=== PATIENT | female | born 1950 | race Caucasian/White ===

== ENCOUNTER 2018-10-12 11:13 | Emergency (ER) | payer MEDICARE ==
[~2018-10-12] VITALS: Ht 157.5 cm; Wt 84.1 kg
[2018-10-12] MEDS ORDERED: SERT-155 (11:27)
[2018-10-12 12:45] LABS: BASO # 0.1 10^3/uL (0.0-0.2); BASO % 0.9 % (0.0-1.0); EOS # 0.2 10^3/uL (0.0-0.50); EOS % 1.8 % (0.0-3.0); HEMATOCRIT 45.8 % (36.0-47.0); HEMOGLOBIN 15.2 g/dl (12.0-15.5); LYMPH # 2.2 10^3/uL (1.5-4.5); MEAN CORPUSCULAR HEMOGLOBIN 29.4 pg (27.0-33.0); MEAN CORPUSCULAR HGB CONC 33.2 g/dl (32.0-36.5); MEAN CORPUSCULAR VOLUME 88.6 fl (80.0-96.0); MONO # 0.6 10^3/uL (0.0-0.8); MONO % 5.1 % (0.0-5.0); NEUTROPHILS # 7.9 10^3/uL (1.8-7.7); NEUTROPHILS % 71.8 % (36.0-66.0); PLATELET COUNT, AUTOMATED 320 10^3/uL (150-450); RED BLOOD COUNT 5.17 10^6/uL (4.00-5.40)
[2018-10-12] MEDS ORDERED: MECLIZINE 25 MG TABLET PO ONE (13:00)
[2018-10-12 13:07] LABS: ALBUMIN 4.1 GM/DL (3.2-5.2); ALT/SGPT 28 U/L (12-78); BILIRUBIN,TOTAL 0.4 MG/DL (0.2-1.0); BLOOD UREA NITROGEN 14 MG/DL (7-18); CARBON DIOXIDE LEVEL 24 MEQ/L (21-32); CHLORIDE LEVEL 104 MEQ/L (98-107); CREATININE FOR GFR 0.66 MG/DL (0.55-1.30); GLOMERULAR FILTRATION RATE > 60.0 (>45); GLUCOSE, FASTING 103 MG/DL (70-100); POTASSIUM SERUM 4.6 MEQ/L (3.5-5.1); SODIUM LEVEL 138 MEQ/L (136-145); TOTAL PROTEIN 7.4 GM/DL (6.4-8.2)
--- NOTE | 2018-10-12 13:33 | REP ---
Clinical: Vertigo . Findings: Age-related atrophy and microvascular ischemic changes are appreciated. The ventricles and sulci are symmetric. Contreras-white differentiation is maintained. There is no evidence for acute intracranial hemorrhage, mass/mass effect, pathology or infarction. No extra-axial fluid collection. Calvarium is intact. Paranasal sinuses and mastoid air cells are clear. Impression: Age related atrophy and microvascular ischemic changes. No acute intracranial hemorrhage, infarction, or mass/mass effect. Electronically Signed by Gt Medina MD 10/12/2018 01:25 P
[2018-10-12] MEDS ORDERED: LORazepam 2 MG/ML VIAL (J2060) IV STA (16:10)
--- NOTE | 2018-10-12 18:19 | REPVR ---
EXAM: MR Angiogram Head Without Contrast, Arteries EXAM DATE/TIME: 10/12/2018 5:54 PM CLINICAL HISTORY: 68 years old, female; Dizziness and giddiness and vertigo; Additional info: Vertigo: Vertebrobasillar insufficiency TECHNIQUE: Imaging protocol: MR angiogram head without contrast. Exam focused on the arteries. COMPARISON: CT Head without contrast 10/12/2018 1:20 PM FINDINGS: Right internal carotid artery: Unremarkable. Intracranial segment is patent with no significant stenosis. No aneurysm. Right anterior cerebral artery: Unremarkable. No occlusion or significant stenosis. No aneurysm. 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 The aneurysm is measured on image 94 of series 201. The dome height is approximately 6.7 mm. The dome width is approximately 6.2 mm. Right posterior cerebral artery: Unremarkable. No occlusion or significant stenosis. No aneurysm. Right vertebral artery: Unremarkable. No occlusion or significant stenosis. No aneurysm. Left internal carotid artery: Unremarkable. Intracranial segment is patent with no significant stenosis. No aneurysm. Left anterior cerebral artery: Unremarkable. No occlusion or significant stenosis. No aneurysm. Left middle cerebral artery: Patent. There is a 1-2 mm outpouching from the mid left M1, this may represent a tiny aneurysm versus infundibulum. Left posterior cerebral artery: Unremarkable. No occlusion or significant stenosis. No aneurysm. Left vertebral artery: Unremarkable. No occlusion or significant stenosis. No aneurysm. Basilar artery: Unremarkable. No occlusion or significant stenosis. No aneurysm. IMPRESSION: 1. 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 Neurosurgical consultation is recommended. 2. No major proximal vessel branch occlusion seen. The vertebrobasilar system is patent. Electronically signed by: Portia Leos On 10/12/2018 18:19:38 PM
--- NOTE | 2018-10-12 18:25 | REPVR ---
EXAM: MR Head Without Contrast EXAM DATE/TIME: 10/12/2018 5:54 PM CLINICAL HISTORY: 68 years old, female; Dizziness; Additional info: Vertigo TECHNIQUE: Imaging protocol: MR of the head without contrast. COMPARISON: MRA BRAIN W/O CONTRAST 10/12/2018 5:[address] Head without contrast 10/12/2018 1:20:31 PM FINDINGS: Brain: No acute infarct identified on the diffusion weighted imaging. No parenchymal hemorrhage. No significant white matter disease for the patient's age. The T2-weighted imaging demonstrates a few small foci of increased signal intensity in the deep and subcortical white matter in keeping with trace chronic small vessel ischemic change. Ventricles: No ventriculomegaly. Bones/joints: Unremarkable. Soft tissues: Normal. Sinuses: Normal as visualized. No acute sinusitis. Mastoid air cells: Normal as visualized. No mastoid effusion. Orbits: Unremarkable. Sella: There is a partially empty sella turcica, usually an incidental finding. Middle cerebral arteries: Abnormal flow void at the right MCA trifurcation consistent with an aneurysm better visualized on an MRA head obtained concurrently. IMPRESSION: No evidence of acute infarct. Electronically signed by: Portia Leos On 10/12/2018 18:24:50 PM
[2018-10-12] MEDS ORDERED: MECL-68 PO (19:33)
[2018-10-12 19:48] VITALS: BP 177/86
--- NOTE | 2018-10-13 10:30 | ECGEPIP ---
[facility] - ED Test Date: 2018-10-12 Pat Name: RICH VASQUEZ Department: Room: - Gender: Female Shoder Filler: elie : 1950 Requested By: Gaurav Multani Order Number: [id number] Reading MD: Gaurav Medina Measurements Intervals Danielson Rate: 78 P: 66 AK: 148 QRS: QRSD: 88 T: 72 QT: 382 QTc: 437 Interpretive Statements SINUS RHYTHM PROBABLE INFERIOR MYOCARDIAL INFARCTION, PROBABLY OLD POOR R WAVE PROGRESSION NO PRIORS FOR COMPARISON Electronically Signed on 10-13-2018 10:29:56 EDT by Gaurav Medina
--- NOTE | 2018-10-17 11:43 | ED PDOC ---
Post-Departure Follow-Up dr aguilar and dr peacock faxed mra of brain for fu Tr Law MD Oct 17, 2018 11:43
== END 2018-10-12 19:51 | disposition home or self-care (01) ==
LOC: M ED 11:13
DX: I67.1 Cerebral aneurysm, nonruptured (principal); R42 Dizziness and giddiness; F32.9 Major depressive disorder, single episode, unspecified; Z79.899 Other long term (current) drug therapy
CPT/HCPCS: 70450; 70544; 70551; 80053; 85025; 93005; 96374; 99284; J2060

== ENCOUNTER → 2018-11-07 | Outpatient (CLI) | payer MEDICARE ==
[~2018-11-07] MED LIST: MECL-68 PO; SERT-155
--- NOTE | 2018-11-07 15:26 | REP ---
BILATERAL SCREENING DIGITAL MAMMOGRAM WITH 3D TOMOSYNTHESIS: There are no palpable abnormalities or other breast complaints. The the patient states she has not had a clinical breast examination over a year. The the patient states she performs self-breast examinations 12 times per year. The Tyrer-Cuzick Score is: 4.8% . Comparison is 08/18/2007, a 2008, 07/22/2011, 11/30/2012 and 09/27/2017. There are scattered areas of fibroglandular density. There is no dominant mass, micro calcific cluster or architectural distortion that would indicate malignancy. There are no additional findings on 3D tomosynthesiss. There is no change from the prior study. Impression: BIRADS/ACR category 1 mammogram. Negative. Recommendation: Routine annual screening mammography. This mammogram was interpreted with the aid of a FDA approved computer-aided detection system. A. Negative mammogram reports should not delay biopsy if a dominant or clinically suspicious mass is present. B. Not all breast cancers are identified by mammography or tomosynthesis. C. Adenosis and dense breasts may obscure an underlying neoplasm. Patient letter M1. Electronically Signed by Terell Ansari MD 11/07/2018 03:17 P
--- NOTE | 2018-11-10 08:45 | DEXA ---
AP SPINE L1 - L4 1.191 0.0 1.6 LT FEMUR TOTAL 0.826 -1.4 -0.2 LT NECK 0.754 -2.0 -0.5 RT FEMUR TOTAL 0.877 -1.0 0.2 RT NECK 0.769 -1.9 -0.4 TOTAL BODY TOTAL OTHER COMMENTS: Normal bone densitometry of the spine. There is low bone density of the hips. The density of the spine has decreased 3.7% since 08/10/2011. The density of the left hip has increased 2.6% since 08/10/2011. The density of the right hip has increased 2.0% since 08/10/2011. FOLLOW-UP: Recommendation for the next bone density exam: 2 years. RENETTA
== END ==
LOC: M WHC 14:03
PROVIDERS: ATTEND Family Medicine
DX: Z12.31 Encounter for screening mammogram for malignant neoplasm of breast (principal); M81.0 Age-related osteoporosis without current pathological fracture

== ENCOUNTER → 2019-04-18 | Outpatient (CLI) | payer MEDICARE ==
[~2019-04-18] MED LIST changes: -SERT-155; +SERT50TA29
--- NOTE | 2019-04-18 18:00 | REP ---
MR angiography the brain without contrast: History: Known cerebral aneurysm. None ruptured. Follow-up. Comparison MR angiography October 12, 2018. Technique: 3-D [id number] MR angiography of the brain is acquired in the usual fashion and maximal intensity projection images were generated in rotational format about the vertical and horizontal axes. In addition, source axial T1-weighted images are viewed in cine mode. MR angiographic findings: The distal vertebral arteries are patent and co-dominant. Basilar artery is a little tortuous but widely patent. The posterior cerebral and superior cerebellar vessels are normal and symmetric. The distal internal carotid arteries are unremarkable. There is a tiny 2 mm outpouching from the M1 segment of the left middle cerebral artery unchanged from the comparison exam. A tiny M1 segment aneurysm is suspected. In addition, at the bifurcation of the right middle cerebral artery there is a 6.2 mm gomez aneurysm which is unchanged as well from the October 12, 2018 prior study. No other aneurysm is seen. Exam is otherwise unremarkable. Impression: 6 mm stable gomez aneurysm bifurcation right middle cerebral artery. 2 mm aneurysm suspected projecting superiorly from the M1 segment of the left MCA. No change from comparison study. Electronically Signed by Ryan Mancia MD 04/18/2019 06:24 P
== END ==
LOC: M RAD 13:12
PROVIDERS: ATTEND Neurological Surgery
DX: I87.1 Compression of vein (principal)

== ENCOUNTER → 2019-11-09 | Outpatient (CLI) | payer MEDICARE ==
[~2019-11-09] MED LIST changes: -MECL-68 PO; +MECL1TAB31 PO
== END ==
LOC: M RAD 15:50
PROVIDERS: ATTEND Physician Assistant Medical
DX: I67.1 Cerebral aneurysm, nonruptured (principal)

== ENCOUNTER → 2020-02-28 | Outpatient (CLI) | payer MEDICARE ==
--- NOTE | 2020-02-28 09:48 | REPMRS ---
Patient History The patient states she has not had a clinical breast exam in over a year. No known family history of cancer. Took estrogen for 6 months. 3D TOMOSYNTHESIS WAS PERFORMED. [facility] lifetime risk for breast cancer is 4.6%. Volpara breast density b. Digital Woman Screen Mammo: February 28, 2020 - Exam #: [id number] Bilateral CC and MLO view(s) were taken. Technologist: Portia Martinez, Technologist Prior study comparison: November 07, 2018, bilateral digital woman screen mammo performed at [facility]. September 27, 2017, bilateral digital woman screen mammo performed at [facility]. FINDINGS: There are scattered fibroglandular densities. There has been no change in the appearance of the mammogram from the prior studies. There is a mild amount of residual fibroglandular tissue which is fairly symmetric. There is no interval development of dominant mass, architectural distortion, or clustered microcalcification suggestive of malignancy. Assessment: BI-RADS/ACR category 1 mammogram. Negative Mammogram. Recommendation Routine screening mammogram in 1 year (for women over age 40). This mammogram was interpreted with the aid of an FDA-approved computer-aided dectection system. Electronically Signed By: Terell Contreras MD 02/28/20 [id number]
== END ==
LOC: M WHC 08:52
PROVIDERS: ATTEND Family Medicine
DX: Z12.31 Encounter for screening mammogram for malignant neoplasm of breast (principal)

== ENCOUNTER → 2020-04-24 | Outpatient (CLI) | payer MEDICARE ==
--- NOTE | 2020-04-24 15:56 | REPVR ---
PROCEDURE INFORMATION: Exam: MR Angiogram Head Without Contrast, Arteries Exam date and time: 04/24/2020 1:57 PM Age: 69 years old Clinical indication: Condition or disease; Aneurysm, cerebral; Patient HX: Aneursym TECHNIQUE: Imaging protocol: MR angiogram head without contrast. Exam focused on the arteries. 3D rendering (Not supervised by radiologist): MIP and/or 3D reconstructed images were created by the technologist. COMPARISON: MRA BRAIN W/O CONTRAST 11/09/2019 4:27 PM FINDINGS: ANTERIOR CIRCULATION: Right internal carotid artery: Intracranial segment is patent with no significant stenosis. No aneurysm. Right middle cerebral artery: There is a stable 7 mm right MCA bifurcation aneurysm. Right anterior cerebral artery: No occlusion or significant stenosis. No aneurysm. Left internal carotid artery: Intracranial segment is patent with no significant stenosis. No aneurysm. Left middle cerebral artery: There is a stable 2 mm left M1 segment aneurysm. Left anterior cerebral artery: No occlusion or significant stenosis. No aneurysm. POSTERIOR CIRCULATION: Right vertebral artery: No occlusion or significant stenosis. No aneurysm. Left vertebral artery: No occlusion or significant stenosis. No aneurysm. Basilar artery: No occlusion or significant stenosis. No aneurysm. Right posterior cerebral artery: No occlusion or significant stenosis. No aneurysm. Left posterior cerebral artery: No occlusion or significant stenosis. No aneurysm. IMPRESSION: 1. There is a stable 7 mm right MCA bifurcation aneurysm. This has been reported previously. 2. There is a stable 2 mm left M1 segment aneurysm. This has been reported previously. Electronically signed by: Zeb Sevilla On 04/24/2020 15:57:06 PM
== END ==
LOC: M RAD 13:19
PROVIDERS: ATTEND Physician Assistant Medical
DX: I67.1 Cerebral aneurysm, nonruptured (principal)

== ENCOUNTER → 2020-07-23 | Outpatient (CLI) | payer MEDICARE ==
--- NOTE | 2020-07-23 11:14 | REP ---
INDICATION: HEADACHE W/ H/O ANEURYSM. COMPARISON: MRA of the brain 04/24/2020. TECHNIQUE: Axial CT images with multiplanar reformations. FINDINGS: No acute bleed or acute large vessel territorial infarct. Ventricles, cisterns and sulci are within normal limits. No mass effect or midline shift. No abnormal fluid collections. Paranasal sinuses and mastoid air cells are clear. IMPRESSION: No acute findings. <Electronically signed by Sebastian Gorman > 07/23/20 [id number]
== END ==
LOC: M RAD 10:49
PROVIDERS: ATTEND Family Medicine
DX: R51.9 Headache, unspecified (principal)

== ENCOUNTER → 2021-04-23 | Outpatient (CLI) | payer MEDICARE | LOC: M PLAIMG 12:31 | PROVIDERS: ATTEND Neurological Surgery | DX: I67.1 Cerebral aneurysm, nonruptured (principal) ==

== ENCOUNTER → 2021-10-20 | Outpatient (CLI) | payer MEDICARE | LOC: M WHC 13:23 | PROVIDERS: ATTEND Family Medicine | DX: Z12.31 Encounter for screening mammogram for malignant neoplasm of breast (principal); R92.8 Other abnormal and inconclusive findings on diagnostic imaging of breast; Z13.820 Encounter for screening for osteoporosis; M85.851 Other specified disorders of bone density and structure, right thigh; M85.852 Other specified disorders of bone density and structure, left thigh; M85.88 Other specified disorders of bone density and structure, other site ==

== ENCOUNTER → 2021-11-11 | Outpatient (CLI) | payer MEDICARE | LOC: M WHC 12:51 | PROVIDERS: ATTEND Family Medicine | DX: N63.11 Unspecified lump in the right breast, upper outer quadrant (principal) | CPT/HCPCS: 77065; G0279 ==

== ENCOUNTER → 2022-02-13 | Outpatient (CLI) | payer MEDICARE | LOC: M RAD 12:59 | PROVIDERS: ATTEND Family Medicine | DX: Z12.2 Encounter for screening for malignant neoplasm of respiratory organs (principal); F17.211 Nicotine dependence, cigarettes, in remission ==

== ENCOUNTER → 2022-05-08 | Outpatient (CLI) | payer MEDICARE | LOC: M RAD 10:29 | PROVIDERS: ATTEND Neurological Surgery | DX: I67.1 Cerebral aneurysm, nonruptured (principal) ==

== ENCOUNTER → 2022-11-23 | Outpatient (CLI) | payer MEDICARE | LOC: M WHC 09:51 | PROVIDERS: ATTEND Family Medicine | DX: Z12.31 Encounter for screening mammogram for malignant neoplasm of breast (principal) ==

== ENCOUNTER 2022-12-08 14:16 | Emergency (ER) | payer MEDICARE ==
[~2022-12-08] VITALS: Ht 157.5 cm; Wt 84.1 kg
[2022-12-08 14:18] VITALS: TEMP 98.6
[2022-12-08] MEDS ORDERED: METO1TAB32 PO (14:29)
[2022-12-08] MEDS ORDERED: ATOR1TAB19 PO (14:29)
[2022-12-08] MEDS ORDERED: METOCLOPRAMIDE INJ 10MG/2ML VIAL IV ONE (17:00)
[2022-12-08] MEDS ORDERED: dexAMETHasone 20MG/5ML VIAL IV ONE (17:00)
[2022-12-08] MEDS ORDERED: MECLIZINE 25 MG TABLET PO ONE (17:00)
[2022-12-08] MEDS ORDERED: NS 1,000 ML IV ONE (17:00)
[2022-12-08] MEDS ORDERED: ACETAMINOPHEN *IV* 1,000 MG in IV 1 EA IV ONE (17:00)
[2022-12-08] MEDS ORDERED: ISOVUE-370 76% 100ML VIAL As Ordered ONE (17:20)
[2022-12-08 17:47] LABS: BASO % 0.4 % (0.0-1.0); EOS % 0.3 % (0.0-3.0); HEMATOCRIT 43.4 % (36.0-47.0); HEMOGLOBIN 14.3 g/dl (12.0-15.5); LYMPH # 1.6 10^3/uL (1.5-5.0); LYMPH % 14.4 % (24.0-44.0); MEAN CORPUSCULAR HEMOGLOBIN 28.8 pg (27.0-33.0); MEAN CORPUSCULAR HGB CONC 32.9 g/dl (32.0-36.5); MEAN CORPUSCULAR VOLUME 87.5 fl (80.0-96.0); MONO # 0.6 10^3/uL (0.0-0.8); MONO % 5.6 % (2.0-8.0); NEUTROPHILS # 8.6 10^3/uL (1.5-8.5); NEUTROPHILS % 78.4 % (36.0-66.0); PLATELET COUNT, AUTOMATED 312 10^3/uL (150-450); RED BLOOD COUNT 4.96 10^6/uL (4.00-5.40)
[2022-12-08 17:48] LABS: LIPASE 30 U/L (12-53)
[2022-12-08 17:50] LABS: ALBUMIN 3.1 G/DL (3.2-5.2); ALKALINE PHOSPHATASE 130 U/L (46-116); ALT/SGPT 65 U/L (7.0-40); AST/SGOT 36 U/L (<34); BILIRUBIN,DIRECT 0.2 MG/DL (<0.4); BILIRUBIN,TOTAL 0.5 MG/DL (0.3-1.2); CK-MB VALUE MASS < 1.0 NG/ML (<3.6); MAGNESIUM LEVEL 1.9 MG/DL (1.8-2.4); TOTAL PROTEIN 6.9 G/DL (5.7-8.2)
[2022-12-08 17:52] LABS: THYROID STIMULATING HORMONE 1.819 uIU/ML (0.55-4.78)
[2022-12-08 17:59] LABS: CPK CREATINE PHOSPHOKINASE 22 U/L (34-145); MB/CK RELATIVE INDEX 4.54 (< OR =4)
[2022-12-08 19:00] VITALS: BP 143/75
[2022-12-08 19:01] VITALS: O2SAT 95
[2022-12-08] MEDS ORDERED: PRED20TA PO (19:12)
[2022-12-08] MEDS ORDERED: MECL1TAB31 PO (19:12)
== END 2022-12-08 19:15 | disposition home or self-care (01) ==
LOC: M ED 14:16
DX: R42 Dizziness and giddiness (principal); R51.9 Headache, unspecified; Z79.899 Other long term (current) drug therapy
CPT/HCPCS: 70450; 70496; 70498; 80047; 80076; 81001; 82550; 82553; 83690; 83735; 84443; 84484; 85025; 86618; 87088; 87186; 87486; 87581; 87633; 87798; 93005; 96374; 96375; 99285; J0131; J1100; J2765; Q9967

== ENCOUNTER → 2023-03-11 | Day surgery (SDC) | payer MEDICARE ==
[~2023-03-11] VITALS: Ht 157.5 cm; Wt 85.5 kg
[~2023-03-11] MED LIST changes: +ATOR1TAB19 PO; +DOXY100C3 PO; +LIDOCAINE 2% 100MG/5ML SDV (FOR ANES.) As Ordered ONE; +MECL-209 PO; -MECL1TAB31 PO; +METO1TAB32 PO; +PRED20TA PO; -SERT50TA29; +SERT50TA29 PO; +propofoL 200 MG/20 ML VIAL As Ordered ONE
[2023-03-11] MEDS: NS 1,000 ML IV ONE (11:28)
[2023-03-11 12:44] VITALS: TEMP 97.3
[2023-03-11 13:05] VITALS: BP 147/70; O2SAT 98
== END | disposition home or self-care (01) ==
LOC: M OPP 11:02
PROVIDERS: ATTEND Surgery
DX: Z12.11 Encounter for screening for malignant neoplasm of colon (principal); Z12.12 Encounter for screening for malignant neoplasm of rectum; D12.2 Benign neoplasm of ascending colon; D12.4 Benign neoplasm of descending colon; K57.30 Diverticulosis of large intestine without perforation or abscess without bleeding; I10 Essential (primary) hypertension; E78.00 Pure hypercholesterolemia, unspecified; K21.9 Gastro-esophageal reflux disease without esophagitis; Z79.899 Other long term (current) drug therapy; Z88.8 Allergy status to other drugs, medicaments and biological substances; Z90.49 Acquired absence of other specified parts of digestive tract

== ENCOUNTER → 2023-03-12 | Outpatient (REF) | payer MEDICARE ==
[~2023-03-12] MED LIST changes: -LIDOCAINE 2% 100MG/5ML SDV (FOR ANES.) As Ordered ONE; -propofoL 200 MG/20 ML VIAL As Ordered ONE
== END ==
LOC: M LAB REF 16:17
PROVIDERS: ATTEND Family Medicine
DX: R74.01 Elevation of levels of liver transaminase levels (principal)

== ENCOUNTER → 2023-05-12 | Outpatient (CLI) | payer MEDICARE | LOC: M PLAIMG 12:36 | PROVIDERS: ATTEND Neurological Surgery | DX: I67.1 Cerebral aneurysm, nonruptured (principal) ==

== ENCOUNTER → 2023-11-01 | Outpatient (CLI) | payer MEDICARE | LOC: M RAD 10:20 | PROVIDERS: ATTEND Family Medicine | DX: F17.211 Nicotine dependence, cigarettes, in remission (principal) ==

== ENCOUNTER → 2024-02-24 | Outpatient (CLI) | payer MEDICARE | LOC: M PLARAD 10:17 | PROVIDERS: ATTEND Neurological Surgery | DX: I67.1 Cerebral aneurysm, nonruptured (principal) ==

== ENCOUNTER → 2024-06-12 | Outpatient (CLI) | payer MEDICARE | LOC: M WHC 12:31 | PROVIDERS: ATTEND Family Medicine | DX: Z12.31 Encounter for screening mammogram for malignant neoplasm of breast (principal) ==